=== PATIENT | male | born 1970 | race African-American/Black ===

== ENCOUNTER 2023-04-19 11:58 | Emergency (ER) | payer OTHER ==
[~2023-04-19] VITALS: Ht 188 cm; Wt 95.3 kg
[2023-04-19 12:08] VITALS: BP 117/83; PULSE 80; RESP 18; TEMP 98; O2SAT 98
[2023-04-19] MEDS ORDERED: DICL100G32 TP (13:17)
[2023-04-19] MEDS ORDERED: NAPR-1704 PO (13:17)
== END 2023-04-19 13:21 | disposition home or self-care (01) ==
LOC: MED 11:58
DX: M77.32 Calcaneal spur, left foot (principal); Z79.899 Other long term (current) drug therapy
CPT/HCPCS: 73630; 99283